=== PATIENT | female | born 1975 ===

== ENCOUNTER → 2019-06-02 | Outpatient (CLI) | payer OTHER ==
[2019-06-06 15:07] LABS: HPV 16 Negative (Negative); HPV 18 Negative (Negative); HPV OTHER HR TYPES Negative (Negative)
== END | disposition home or self-care (01) ==
LOC: LAB 17:42 → LAB SHORT 17:42
PROVIDERS: Family Medicine
DX: Z12.4 Encounter for screening for malignant neoplasm of cervix (principal)
CPT/HCPCS: 87624; G0123